=== PATIENT | female | born 1990 | race Asian ===

== ENCOUNTER 2018-12-16 09:44 | Emergency (ER) | payer MEDICAID, OTHER ==
[~2018-12-16] VITALS: Ht 147.3 cm; Wt 65.9 kg
[~2018-12-16 09:44] MED LIST: IBUP-1984 PO; MECL12.5 PO; NO HOME MEDS
[2018-12-16 09:48] VITALS: BP 111/71
== END 2018-12-16 13:16 | disposition home or self-care (01) ==
LOC: ER 09:45
DX: J02.9 Acute pharyngitis, unspecified (principal); R13.10 Dysphagia, unspecified
CPT/HCPCS: 87081; 87880; 99283

== ENCOUNTER 2019-01-15 20:49 | Emergency (ER) | payer MEDICAID, OTHER ==
[~2019-01-15] VITALS: Ht 147.3 cm; Wt 69.0 kg
[2019-01-15 21:04] VITALS: BP 115/81
[2019-01-15] MEDS ORDERED: TETRACAINE 0.5% 5 ML OPHTHALMIC DROPS RIGHTEYE ONE (21:25)
[2019-01-15] MEDS ORDERED: proparacaine 0.5% ophthalmic drops 15ml RIGHTEYE ONE (21:35)
[2019-01-15] MEDS ORDERED: POLOS RIGHTEYE (21:57)
== END 2019-01-15 22:18 | disposition home or self-care (01) ==
LOC: ER 20:49
DX: H18.891 Other specified disorders of cornea, right eye (principal); H57.11 Ocular pain, right eye; Z79.899 Other long term (current) drug therapy; X58.XXXA Exposure to other specified factors, initial encounter; Y93.89 Activity, other specified; Y92.89 Other specified places as the place of occurrence of the external cause; Y99.8 Other external cause status
CPT/HCPCS: 99283

== ENCOUNTER 2019-02-24 05:00 | Emergency (ER) | payer MEDICAID ==
[~2019-02-24] VITALS: Ht 147.3 cm; Wt 68.2 kg
[~2019-02-24 05:00] MED LIST changes: +MECL-111 PO; +ONDA4TAB6 PO
[2019-02-24] MEDS ORDERED: normal saline 1000ML IV soln IVB ONE (05:20)
[2019-02-24] MEDS ORDERED: ondansetron/PF 4mg/2ml inj IV ONE (05:20)
[2019-02-24] MEDS ORDERED: morphine 4 MG/ML inj SYRINge IV PRN (05:20)
[2019-02-24 06:02] LABS: BASOPHILS % (AUTO) 0.3 % (0-1); EOSINOPHILS # (AUTO) 0.1 X10'3 (0-0.9); EOSINOPHILS % (AUTO) 0.8 % (0-6); HEMATOCRIT 42.3 % (35.0-45.0); HEMOGLOBIN 14.7 g/dl (12.0-16.0); LYMPHOCYTES # (AUTO) 1.7 X10'3 (1.1-4.8); LYMPHOCYTES % (AUTO) 16.2 % (21-51); MEAN CORPUSCULAR HEMOGLOBIN 30.9 PG (27.0-31.0); MEAN CORPUSCULAR HGB CONC 34.9 g/dL (33.0-36.5); MEAN CORPUSCULAR VOLUME 88.7 FL (78-98); MONOCYTES # (AUTO) 0.5 X10'3 (0-0.9); MONOCYTES % (AUTO) 5.1 % (2-12); NEUTROPHILS # (AUTO) 8.3 X10'3 (1.8-7.7); NEUTROPHILS % (AUTO) 77.6 % (42-75); PLATELET COUNT 286 X10'3 (140-440); RED BLOOD COUNT 4.77 X10'6 (4.20-5.60); RED CELL DISTRIBUTION WIDTH 12.5 % (11.5-14.5); WHITE BLOOD COUNT 10.7 X10'3 (4.5-11.0)
[2019-02-24 06:28] LABS: ALANINE AMINOTRANSFERASE 23 U/L (12-78); ALBUMIN 4.1 G/DL (3.4-5.0); ALKALINE PHOSPHATASE 63 IU/L (46-116); ANION GAP 9 (8-16); ASPARTATE AMINO TRANSFERASE 14 U/L (10-37); BILIRUBIN,TOTAL 0.4 MG/DL (0.1-1.0); BLOOD UREA NITROGEN 13 MG/DL (7-18); BUN/CREATININE RATIO 15.3 (6.6-38.0); CALCIUM 9.6 MG/DL (8.5-10.1); CHLORIDE 100 MMOL/L (99-107); CREATININE 0.85 MG/DL (0.40-0.90); GLUCOSE 126 MG/DL (70-104); LIPASE 91 U/L (73-393); POTASSIUM 3.7 MMOL/L (3.5-5.1); SODIUM 136 MMOL/L (135-145); TOTAL CARBON DIOXIDE 27.3 MMOL/L (24-32); TOTAL PROTEIN 8.2 G/DL (6.4-8.2); eGFR 80 ML/MIN
[2019-02-24] MEDS ORDERED: sucralfate 1gm/10ml UD suspension PO STA (06:58)
[2019-02-24] MEDS ORDERED: mag hydrox/Alum hydrox/simeth 30ml oral suspension PO ONE (07:00)
[2019-02-24] MEDS ORDERED: LIDOcaine Viscous 15ml cup PO ONE (07:00)
[2019-02-24 07:10] VITALS: BP 104/60
[2019-02-24 07:51] LABS: CLARITY,URINE SLIGHTLY CLOUDY (Clear); GLUCOSE, URINE NEGATIVE (Neg); KETONES,URINE NEGATIVE (Neg); LEUKOCYTE ESTERASE ,URINE NEGATIVE (Neg); NITRITES, URINE NEGATIVE (Neg); OCCULT BLOOD,URINE TRACE-INTACT (Neg); PROTEIN,URINE TRACE mg/dl (Neg); UROBILINOGEN,URINE 0.2 E.U/dL (0.2-1.0)
[2019-02-24 07:52] LABS: COLOR,URINE DARK YELLOW (Yellow); UA COLLECTION TYPE CLN CATCH MIDSTREAM
[2019-02-24 07:55] LABS: URINE HCG NEGATIVE (NEG)
[2019-02-24 07:56] LABS: BACTERIA,URINE 1+ /HPF (Neg); WBC,URINE 0-4 /HPF (0-4)
[2019-02-24 07:57] LABS: HYALINE CASTS 0-3 /LPF (NEGATIVE); MUCUS STRANDS MANY /LPF (Neg); SQUAMOUS EPITHELIAL CELL,UR MODERATE /LPF (FEW)
[2019-02-24] MEDS ORDERED: PANT-47 PO (08:03)
== END 2019-02-24 08:25 | disposition home or self-care (01) ==
LOC: ER 05:00
DX: R10.13 Epigastric pain (principal); R11.0 Nausea; Z79.899 Other long term (current) drug therapy
CPT/HCPCS: 36415; 76700; 80053; 81001; 81025; 83690; 85025; 96374; 96375; 99284; J2270; J2405; J7030

== ENCOUNTER 2019-07-10 21:24 | Emergency (ER) | payer MEDICAID ==
[~2019-07-10] VITALS: Ht 147.3 cm; Wt 64.8 kg
[~2019-07-10 21:24] MED LIST changes: +PANT-47 PO
[2019-07-10] MEDS ORDERED: acetaminophen 325mg tablet PO ONE (21:35)
[2019-07-10 21:46] LABS: BASOPHILS % (AUTO) 0.4 % (0-1); EOSINOPHILS # (AUTO) 0.1 X10'3 (0-0.9); EOSINOPHILS % (AUTO) 2.4 % (0-6); HEMATOCRIT 36.4 % (35.0-45.0); HEMOGLOBIN 12.7 g/dl (12.0-16.0); LYMPHOCYTES # (AUTO) 1.7 X10'3 (1.1-4.8); LYMPHOCYTES % (AUTO) 26.7 % (21-51); MEAN CORPUSCULAR HEMOGLOBIN 31.5 PG (27.0-31.0); MEAN CORPUSCULAR HGB CONC 34.8 g/dL (33.0-36.5); MEAN CORPUSCULAR VOLUME 90.5 FL (78-98); MEAN PLATELET VOLUME 6.7 FL (7.4-10.4); MONOCYTES # (AUTO) 0.6 X10'3 (0-0.9); MONOCYTES % (AUTO) 10.1 % (2-12); NEUTROPHILS # (AUTO) 3.8 X10'3 (1.8-7.7); NEUTROPHILS % (AUTO) 60.4 % (42-75); PLATELET COUNT 254 X10'3 (140-440); RED BLOOD COUNT 4.02 X10'6 (4.20-5.60); RED CELL DISTRIBUTION WIDTH 12.8 % (11.5-14.5); WHITE BLOOD COUNT 6.3 X10'3 (4.5-11.0)
--- NOTE | 2019-07-10 21:55 | NUR ---
MD KANG MADE AWARE OF PATIENTS, HE IS ORDERING A STAT US DUE TO COMPLICATION AND NATURE OF HER ILLNESS. PATIENT CARE DELAYED DUE TO NO [employer] CLERK ULTRASOUND, DIALYSIS PATIENT CARE TECHNICIAN CURRENTLY TRYING TO GET A US TECH IN.
[2019-07-10 22:02] LABS: ALANINE AMINOTRANSFERASE 20 U/L (12-78); ALBUMIN 3.4 G/DL (3.4-5.0); ALBUMIN/GLOBULIN RATIO 0.9 (1.1-1.5); ALKALINE PHOSPHATASE 46 IU/L (46-116); ANION GAP 5 (8-16); ASPARTATE AMINO TRANSFERASE 12 U/L (10-37); BILIRUBIN,TOTAL 0.2 MG/DL (0.1-1.0); BLOOD UREA NITROGEN 8 MG/DL (7-18); BUN/CREATININE RATIO 12.1 (6.6-38.0); CALCIUM 8.7 MG/DL (8.5-10.1); CHLORIDE 105 MMOL/L (99-107); CREATININE 0.66 MG/DL (0.40-0.90); GLUCOSE 93 MG/DL (70-104); POTASSIUM 3.5 MMOL/L (3.5-5.1); SODIUM 138 MMOL/L (135-145); TOTAL CARBON DIOXIDE 27.9 MMOL/L (24-32); TOTAL PROTEIN 7.2 G/DL (6.4-8.2); eGFR > 90 ML/MIN
--- NOTE | 2019-07-10 22:42 | NUR ---
PT IS - REPORTS LIGHT SPOTTING FOR PAST HOUR. PT IS IN NO ACUTE DISTRESS. LAUGHING AND CARRYING ON WITH VISITOR AT BEDSIDE. REFUSED TYLENOL.
--- NOTE | 2019-07-10 23:20 | NUR ---
PT CONTINUES TO JOKE WITH VISITOR AT BEDSIDE - NO DISTRESS NOTED. SHE IS MAKING STATEMENTS SUCH "FUCK, I NEED TO GO ON A DIET, LOOK AT MY BELLY, I AM EATING TOO MUCH RICE"
--- NOTE | 2019-07-11 00:28 | NUR ---
PT QUESTIONED ABOUT HER BP READING OF 92/59 - SHE STATES THAT IS NORMAL FOR HER.
[2019-07-11 01:50] VITALS: BP 101/51
--- NOTE | 2019-07-11 01:51 | NUR ---
UNABLE TO HEAR HEART TONES WITH HANDHELD DOPLER. AWARE
--- NOTE | 2019-07-11 02:04 | NUR ---
NO GRAPHIC DESIGN SPECIALIST AVAILIBLE.
== END 2019-07-11 02:04 | disposition left against medical advice (07) ==
LOC: ER 21:24
DX: O20.9 Hemorrhage in early pregnancy, unspecified (principal); Z3A.08 8 weeks gestation of pregnancy; Z53.21 Procedure and treatment not carried out due to patient leaving prior to being seen by health care provider
CPT/HCPCS: 36415; 80053; 84702; 85025; 85610; 86885; 86900; 86901

== ENCOUNTER 2020-03-24 02:51 | Emergency (ER) | payer MEDICAID ==
[~2020-03-24] VITALS: Ht 147.3 cm; Wt 60.9 kg
[~2020-03-24 02:51] MED LIST changes: -MECL-111 PO; +MECL-159 PO
[2020-03-24 02:53] VITALS: BP 112/75
[2020-03-24] MEDS ORDERED: CEPH-572 PO ×2 (03:00→03:06)
[2020-03-24] MEDS ORDERED: cephalexin 250mg capsule PO ONE (03:00)
[2020-03-24] MEDS ORDERED: PHEN-716 PO (03:00)
[2020-03-24] MEDS ORDERED: phenazopyridine 100mg tablet PO ONE (03:00)
--- NOTE | 2020-03-24 03:05 | NUR ---
Dr. Guzman stated not to give pyridium as pt is
[2020-03-24 03:16] LABS: URINE HCG NEGATIVE (NEG)
[2020-03-24 03:18] LABS: CLARITY,URINE CLOUDY (Clear); COLOR,URINE YELLOW (Yellow); GLUCOSE, URINE NEGATIVE (Neg); KETONES,URINE NEGATIVE (Neg); LEUKOCYTE ESTERASE ,URINE SMALL (Neg); NITRITES, URINE NEGATIVE (Neg); OCCULT BLOOD,URINE LARGE (Neg); PROTEIN,URINE TRACE mg/dl (Neg); UROBILINOGEN,URINE 0.2 E.U/dL (0.2-1.0)
[2020-03-24 03:23] LABS: UA COLLECTION TYPE CLN CATCH MIDSTREAM
[2020-03-24 03:24] LABS: BACTERIA,URINE FEW /HPF (Neg); SQUAMOUS EPITHELIAL CELL,UR MODERATE /LPF (FEW); WBC,URINE 50-100 /HPF (0-4)
== END 2020-03-24 03:13 | disposition home or self-care (01) ==
LOC: ER 02:52
DX: N39.0 Urinary tract infection, site not specified (principal); M54.5 Low back pain; Z79.2 Long term (current) use of antibiotics; Z79.899 Other long term (current) drug therapy
CPT/HCPCS: 81001; 81025; 87077; 87088; 87186; 99283

== ENCOUNTER 2020-06-26 14:20 | Emergency (ER) | payer MEDICAID ==
[~2020-06-26] VITALS: Ht 147.3 cm; Wt 66.8 kg
[~2020-06-26 14:20] MED LIST changes: +CEPH-572 PO
[2020-06-26 14:24] VITALS: BP 93/61
[2020-06-26] MEDS ORDERED: LIDOcaine 5% patch TP SCH (15:20)
[2020-06-26] MEDS ORDERED: LIDO700A32 TOP (15:41)
== END 2020-06-26 15:52 | disposition home or self-care (01) ==
LOC: ER 14:20
DX: S39.012A Strain of muscle, fascia and tendon of lower back, initial encounter (principal); M25.532 Pain in left wrist; Z79.2 Long term (current) use of antibiotics; Z79.899 Other long term (current) drug therapy; X58.XXXA Exposure to other specified factors, initial encounter; Y93.89 Activity, other specified; Y92.89 Other specified places as the place of occurrence of the external cause; Y99.8 Other external cause status
CPT/HCPCS: 29105; 29125; 99283

== ENCOUNTER 2022-08-31 14:27 | Emergency (ER) | payer MEDICAID ==
[~2022-08-31] VITALS: Ht 147.3 cm; Wt 75.0 kg
[~2022-08-31 14:27] MED LIST changes: +LIDO700A32 TOP
[2022-08-31] MEDS ORDERED: dexamethasone sod phosphate 10mg/ml inj IV STA (17:49)
[2022-08-31] MEDS ORDERED: meclizine 12.5mg tablet PO ONE (17:50)
[2022-08-31] MEDS ORDERED: diazepam inj 5 MG/ML inj. IV ONE (17:50)
[2022-08-31] MEDS ORDERED: normal saline 1000ML IV soln IVB ONE (17:50)
--- NOTE | 2022-08-31 18:07 | NUR ---
I agree with perla woodruff's general assessment.
[2022-08-31] MEDS ORDERED: MECL-159 PO (18:36)
[2022-08-31 19:08] VITALS: BP 123/93
== END 2022-08-31 19:10 | disposition home or self-care (01) ==
LOC: ER 14:28
DX: R42 Dizziness and giddiness (principal); R11.0 Nausea; Z87.440 Personal history of urinary (tract) infections; Z79.2 Long term (current) use of antibiotics; Z79.899 Other long term (current) drug therapy
CPT/HCPCS: 96361; 96374; 96375; 99284; J1100; J3360; J7030; J8597

== ENCOUNTER 2022-11-14 11:53 | Emergency (ER) | payer MEDICAID ==
[~2022-11-14] VITALS: Ht 147.3 cm; Wt 77.3 kg
[2022-11-14 12:05] VITALS: BP 103/75
[2022-11-14 13:38] LABS: CLARITY,URINE CLEAR (Clear); COLOR,URINE YELLOW (Yellow); GLUCOSE, URINE NEGATIVE (Neg); KETONES,URINE NEGATIVE (Neg); LEUKOCYTE ESTERASE ,URINE NEGATIVE (Neg); NITRITES, URINE NEGATIVE (Neg); OCCULT BLOOD,URINE TRACE-INTACT (Neg); PH,URINE 7.5 (4.8-8.0); PROTEIN,URINE NEGATIVE (Neg); URINE HCG NEGATIVE (NEG); UROBILINOGEN,URINE 0.2 E.U/dL (0.2-1.0)
[2022-11-14 13:47] LABS: UA COLLECTION TYPE CLN CATCH MIDSTREAM
[2022-11-14 13:49] LABS: BACTERIA,URINE 3+ /HPF (Neg); MUCUS STRANDS FEW /LPF (Neg); RBC,URINE 0-2 /HPF (0-2); SQUAMOUS EPITHELIAL CELL,UR MANY /LPF (FEW); WBC,URINE 0-4 /HPF (0-4)
[2022-11-14] MEDS ORDERED: CEPH500C2 PO (13:59)
== END 2022-11-14 14:16 | disposition home or self-care (01) ==
LOC: ER 11:54
DX: N39.0 Urinary tract infection, site not specified (principal); Z79.899 Other long term (current) drug therapy; Z79.1 Long term (current) use of non-steroidal anti-inflammatories (NSAID); Z79.2 Long term (current) use of antibiotics
CPT/HCPCS: 81001; 81025; 99283

== ENCOUNTER 2024-05-24 19:02 | Emergency (ER) | payer MEDICAID ==
[~2024-05-24] VITALS: Ht 147.3 cm; Wt 75.9 kg
[~2024-05-24 19:02] MED LIST changes: -MECL-159 PO; +MECL-302 PO
[2024-05-24 19:08] VITALS: TEMP 97.3
[2024-05-24 19:38] LABS: BILIRUBIN,URINE NEGATIVE (Neg); CLARITY,URINE CLOUDY (Clear); COLOR,URINE YELLOW (Yellow); GLUCOSE, URINE NEGATIVE (Neg); KETONES,URINE NEGATIVE (Neg); LEUKOCYTE ESTERASE ,URINE SMALL (Neg); NITRITES, URINE POSITIVE (Neg); OCCULT BLOOD,URINE TRACE-INTACT (Neg); PROTEIN,URINE TRACE mg/dl (Neg); UROBILINOGEN,URINE 0.2 E.U/dL (0.2-1.0)
[2024-05-24 19:43] LABS: UA COLLECTION TYPE CLN CATCH MIDSTREAM
[2024-05-24 19:45] LABS: BACTERIA,URINE 4+ /HPF (Neg); MUCUS STRANDS MODERATE /LPF (Neg); SQUAMOUS EPITHELIAL CELL,UR MODERATE /LPF (FEW); TRANSITIONAL EPI CELLS,URINE FEW /HPF; WBC,URINE 50-100 /HPF (0-4)
[2024-05-24 19:46] LABS: URINE HCG NEGATIVE (NEG); WBC CLUMPS,URINE FEW /HPF (NEGATIVE)
[2024-05-24] MEDS ORDERED: CEPH-585 PO (20:05)
[2024-05-24] MEDS ORDERED: PHEN-716 PO (20:05)
[2024-05-24] MEDS: CefTRIAXone 1000mg IM Kit (w/lidocaine diluent) IM ONE (20:43)
[2024-05-24 20:55] VITALS: BP 108/71; PULSE 92; RESP 16; O2SAT 98
== END 2024-05-24 20:58 | disposition home or self-care (01) ==
LOC: ER 19:03
DX: N39.0 Urinary tract infection, site not specified (principal); Z79.2 Long term (current) use of antibiotics; Z79.1 Long term (current) use of non-steroidal anti-inflammatories (NSAID); Z79.899 Other long term (current) drug therapy
CPT/HCPCS: 81001; 81025; 87077; 87088; 87186; 96372; 99283; J0696